=== PATIENT | male | born 1970 | race Caucasian/White ===

== ENCOUNTER 2017-11-16 08:45 | Day surgery (SDC) | payer OTHER ==
[2017-11-16] MEDS ORDERED: FENTAnyl 50 MCG/ML VIAL ×2 (08:56→11:20)
[2017-11-16] MEDS ORDERED: MIDAZOLAM 1 MG/ML 2 ML INJ (08:56)
[2017-11-16] MEDS ORDERED: GLYCOPYRROLATE 0.4 MG INJ (08:56)
[2017-11-16] MEDS ORDERED: LIDOCAINE 2% (SDV) 5 ML INJ (08:56)
[2017-11-16] MEDS ORDERED: PROPOFOL 20 ML (08:56)
[2017-11-16] MEDS ORDERED: NEOSTIGMINE 3 MG/3 ML SYRINGE (08:56)
[2017-11-16] MEDS ORDERED: ROCURONIUM 50 MG INJ (08:56)
[2017-11-16] MEDS ORDERED: ONDANSETRON 4 MG INJ (08:57)
[2017-11-16] MEDS ORDERED: DEXAMETHASONE 4 MG/ML 1 ML INJ (08:57)
[2017-11-16] MEDS ORDERED: LIDOCAINE 1% (MPF) 30 ML INJ (10:15)
[2017-11-16] MEDS ORDERED: morphine 2 MG INJ IV (10:30)
[2017-11-16] MEDS ORDERED: morphine (1 MG/ML) 10ML SYRINGE IV ×4 (10:30)
[2017-11-16] MEDS ORDERED: MIDAZOLAM 1 MG/ML 2 ML INJ IV ×2 (10:30)
[2017-11-16] MEDS ORDERED: hydrALAzine 20 MG INJ IV ×2 (10:30)
[2017-11-16] MEDS ORDERED: DIPHENHYDRAMINE 50 MG INJ IV ×2 (10:30)
[2017-11-16] MEDS ORDERED: FENTAnyl 50 MCG/ML VIAL IV ×3 (10:30)
[2017-11-16] MEDS ORDERED: EPHEDrine SULFATE 50 MG/5 ML SYG IV ×2 (10:30)
[2017-11-16] MEDS ORDERED: OXYCODONE/ACETAMINOPHEN (5/325) TAB PO ×3 (10:30)
[2017-11-16] MEDS ORDERED: ONDANSETRON 4 MG INJ IV (10:30)
[2017-11-16] MEDS ORDERED: ATROPINE 1 MG/10 ML SYRINGE IV ×2 (10:30)
[2017-11-16] MEDS ORDERED: LABETALOL HCL 20MG INJ IV ×2 (10:30)
[2017-11-16] MEDS ORDERED: MEPERIDINE 25 MG INJ IV (10:30)
[2017-11-16] MEDS ORDERED: HYDROmorphONE 1 MG/5 ML IV SYRINGE IV ×4 (10:30)
[2017-11-16] MEDS ORDERED: SUCCINYLCHOLINE CHLORIDE 100 MG/5 ML SYG IV ×2 (10:35→11:13)
[2017-11-16] MEDS ORDERED: CEFAZOLIN 1 GM INJ ×2 (10:35→11:13)
[2017-11-16 10:48] LABS: HAAIG REFLEX REFLEX FILED
[2017-11-16 11:14] LABS: ALANINE AMINOTRANSFERASE 100 IU/L (13-69); ALBUMIN 4.2 g/dl (3.3-4.9); ALKALINE PHOSPHATASE 57 IU/L (42-121); ANION GAP 9 (8-16); ASPARTATE AMINO TRANSFERASE 54 IU/L (15-46); BILIRUBIN,INDIRECT 0.5 mg/dl (0-1.1); BILIRUBIN,TOTAL 0.5 mg/dl (0.2-1.3); BLOOD UREA NITROGEN 18 mg/dl (7-20); CALCIUM 8.8 mg/dl (8.4-10.2); CARBON DIOXIDE 29 mmol/L (21-31); CHLORIDE 105 mmol/L (97-110); CREATININE 0.88 mg/dl (0.61-1.24); GLUCOSE 102 mg/dl (70-220); POTASSIUM 4.1 mmol/L (3.5-5.1); SODIUM 139 mmol/L (135-144); TOTAL PROTEIN 7.2 g/dl (6.1-8.1)
[2017-11-16] MEDS ORDERED: hydrALAzine 20 MG INJ (11:15)
[2017-11-16] MEDS ORDERED: LABETALOL HCL 20MG INJ (11:20)
[2017-11-16] MEDS: morphine SULFATE/PF (10 MG/10 ML) INJ (11:31)
[2017-11-16] MEDS: ROPIVACAINE 0.5 % 30 ML VIAL (11:31)
[2017-11-16] MEDS ORDERED: SUGAMMADEX SODIUM 200 MG/2 ML VIAL IV (11:50)
[2017-11-16] MEDS: MEPERIDINE 25 MG INJ IV (12:15)
[2017-11-16] MEDS: HYDROmorphONE 1 MG/5 ML IV SYRINGE IV ×2 (12:20→12:25)
[2017-11-16] MEDS: LACTATED RINGER'S 1,000 ML IV (12:21)
[2017-11-16] MEDS: ONDANSETRON 4 MG INJ IV (12:25)
[2017-11-16] MEDS: OXYCODONE/ACETAMINOPHEN (5/325) TAB PO (12:31)
[2017-11-16] MEDS: morphine (1 MG/ML) 10ML SYRINGE IV ×3 (12:41→13:46)
[2017-11-16] MEDS: FENTAnyl 50 MCG/ML VIAL IV (12:51)
[2017-11-16 12:59] LABS: HEPATITIS B SURFACE ANTIGEN NEGATIVE (NEGATIVE)
[2017-11-16 13:17] LABS: HEPATITIS B CORE ANTIBODY NEGATIVE (NEGATIVE); HEPATITIS C VIRAL ANTIBODY NEGATIVE (NEGATIVE)
== END 2017-11-16 15:30 | disposition home or self-care (01) ==
LOC: SDS 08:45
DX: M23.221 Derangement of posterior horn of medial meniscus due to old tear or injury, right knee (principal); M23.251 Derangement of posterior horn of lateral meniscus due to old tear or injury, right knee; M94.261 Chondromalacia, right knee
CPT/HCPCS: 29880; 80053; 82306; 86704; 86709; 86803; 87340